=== PATIENT | male | born 1990 | race Caucasian/White ===

== ENCOUNTER 2023-05-17 19:41 | Emergency (ER) | payer SELFPAY ==
[~2023-05-17] VITALS: Ht 177.8 cm; Wt 94.0 kg
[2023-05-17 19:44] VITALS: TEMP 97.9; O2SAT 97
[2023-05-17] MEDS ORDERED: IBUPROFEN 600MG TABLET PO STA (20:54)
[2023-05-18] MEDS ORDERED: IBUP-2029 MT (00:53)
[2023-05-18] MEDS ORDERED: IBUPROFEN 600MG TABLET PO NR (01:15)
[2023-05-18 01:19] VITALS: BP 136/95; PULSE 89; RESP 16
== END 2023-05-18 01:18 | disposition home or self-care (01) ==
LOC: ER 19:41
DX: S20.219A Contusion of unspecified front wall of thorax, initial encounter (principal); S09.90XA Unspecified injury of head, initial encounter; F19.90 Other psychoactive substance use, unspecified, uncomplicated; V49.60XA Unspecified car occupant injured in collision with unspecified motor vehicles in traffic accident, initial encounter; Y93.89 Activity, other specified; Y92.89 Other specified places as the place of occurrence of the external cause; Y99.8 Other external cause status
CPT/HCPCS: 71045; 93005; 99284